=== PATIENT | female | born 1995 | race African-American/Black ===

== ENCOUNTER 2016-12-22 00:30 | Emergency (ER) | payer OTHER ==
[~2016-12-22] VITALS: Ht 170.2 cm; Wt 63.5 kg
[2016-12-22 00:35] VITALS: BP 115/61
[2016-12-22 01:11] LABS: Urine Bilirubin Negative (Negative); Urine Color PINK (Yellow); Urine Glucose Normal (Normal); Urine Ketone Negative (Negative); Urine Mucus FEW (None Seen); Urine Nitrite Negative (Negative); Urine RBC 79 /hpf (0 - 4); Urine Squamous Epithelial Cell MOD /hpf (<5)
[2016-12-22 01:12] LABS: Urine Blood 3+ /uL (Negative)
[2016-12-22] MEDS ORDERED: IBUPROFEN 600 MG TAB PO ONE (01:45)
== END 2016-12-22 01:45 | disposition home or self-care (01) ==
LOC: ER 00:31
DX: N39.0 Urinary tract infection, site not specified (principal); N93.8 Other specified abnormal uterine and vaginal bleeding
CPT/HCPCS: 81001; 81025

== ENCOUNTER 2019-10-16 13:43 | Emergency (ER) | payer OTHER | END 2019-10-16 14:03 | disposition left against medical advice (07) | LOC: ER 13:43 | DX: G43.909 Migraine, unspecified, not intractable, without status migrainosus (principal); Z53.21 Procedure and treatment not carried out due to patient leaving prior to being seen by health care provider ==

== ENCOUNTER → 2019-10-31 | Emergency (ER) | payer OTHER ==
[~2019-10-31] VITALS: Ht 170.2 cm; Wt 56.7 kg
[2019-10-31 08:40] VITALS: BP 121/74
== END | disposition left against medical advice (07) ==
LOC: ER 08:35
DX: R51 Headache (principal); W01.0XXA Fall on same level from slipping, tripping and stumbling without subsequent striking against object, initial encounter; Y93.89 Activity, other specified; Y92.89 Other specified places as the place of occurrence of the external cause; Y99.8 Other external cause status